=== PATIENT | male | born 1945 | race Caucasian/White ===

== ENCOUNTER 2016-05-21 11:44 | Inpatient (IN) | payer OTHER ==
[2016-05-18 14:04] LABS: HEMATOCRIT 38.8 % (40.0-51.0); HEMOGLOBIN 13.8 g/dL (13.6-17.8)
[2016-05-18 14:13] LABS: BUN (BLOOD UREA NITROGEN) 14 MG/DL (6-23); CALCIUM, SERUM 8.6 MG/DL (8.5-10.4); CHLORIDE, SERUM 103 MMOL/L (96-112); CO2 (CARBON DIOXIDE) 30 MMOL/L (24-34); CREATININE 0.89 MG/DL (0.70-1.30); GFR AFRICAN AMERICAN 101 ML/MIN (>=60); GFR NON AFRICAN AMERICAN 87 ML/MIN (>=60); GLUCOSE, SERUM 110 MG/DL (60-99); POTASSIUM, SERUM 4.3 MMOL/L (3.5-5.3); SODIUM, SERUM 141 MMOL/L (135-148)
[2016-05-18 16:43] LABS: ASCORBIC ACID (UR NOT ORDER) 40 (NEG); BILIRUBIN, URINE NEGATIVE (NEG); KETONE, URINE NEGATIVE (NEG); LEUKOCYTE ESTERASE(NOT OR SMALL (NEG); WBC (NOT ORDERED) (RFLEX) 1 (0-5)
--- NOTE | ~2016-05-21 | OP ---
Record Of Operation [facility] [address] [place]. [address] NAME: IZA IVY : 47 STATUS : DIS IN PAT#: [id number] AGE: 70 ADM/REG DATE : 05/21/16 MR#: [id number] REPORT SERV DATE: 05/22/16 DICTATED BY: SOHAIL BURR DATE: 05/22/16 REPORT STATUS : Draft TRANSCRIBED BY: MODL DATE: 05/22/16 DATE OF PROCEDURE: 05/21/2016 SURGEON: Sohail Burr MD. TITLE OF OPERATION: Robot-assisted laparoscopic radical nerve-sparing prostatectomy. PREOPERATIVE DIAGNOSIS: Prostate cancer. POSTOPERATIVE DIAGNOSIS: Prostate cancer. INDICATIONS: Mr. Ivy is a 70-year-old male with low-risk high volume prostate cancer. He has been given options including active surveillance, surgery, and radiation therapy. The risks and benefits of all approaches were discussed in detail. He has elected for radical prostatectomy. ANESTHESIA: General. COMPLICATIONS: None. IMPLANT: An 18-Armenian Andre catheter and a #10 round MELISSA drain. SPECIMEN: Prostate and seminal vesicles for pathologic analysis. NARRATIVE: The patient was brought to the operating room, identified by his wristband. General anesthesia was induced and Ancef was given for preoperative antibiotics. He was placed in dorsal lithotomy position, prepped and draped in sterile fashion. His abdomen was insufflated to a pressure of 15 mmHg using a Veress needle. A 16-Armenian Andre catheter was placed into his bladder. The balloon was inflated with 10 mL of sterile water. Once his abdomen was insufflated, an 8 mm port was placed in a supraumbilical position. His abdomen was inspected, there was no adhesions or abnormalities. A standard X-Y robotic port placement was performed with two 8 mm ports in the left side of the body and one 8 mm port on the right side of the body. A 12 mm port was placed in the right lower quadrant and a 5 mm port was placed in the right upper quadrant for certified ophthalmic assistant ports. The robot was docked to the ports. The operation was begun by incising the peritoneum over the seminal vesicles and vas deferens. These structures were dissected out bilaterally. The vas deferens were clipped and divided bilaterally. The vascular supply to the seminal vesicles were clipped and divided bilaterally. Once these structures were freed from their attachments, they were lifted anteriorly. Denonvilliers fascia was then sharply incised and reflected onto the rectum. Dissection was carried from the base of the prostate to the apex. The dissection was carried laterally to the junction of the neurovascular structures and the prostate. Next, the bladder was dropped off the anterior abdominal wall using electrocautery. This exposed the pubic bone and the prostate. The prostate was sharply defatted and all fibrofatty tissue surrounding the prostate was sent to Pathology as anterior fat pad. The endopelvic fascia were then sharply divided bilaterally. Levator fibers were flipped off the prostate bilaterally. The puboprostatic ligaments were divided bilaterally. The dorsal Record Of Operation [facility] [address] [facility] [place]. [address] NAME: IZA IVY : 47 STATUS : DIS IN PAT#: [id number] AGE: 70 ADM/REG DATE : 05/21/16 MR#: [id number] REPORT SERV DATE: 05/22/16 DICTATED BY: SOHAIL BURR DATE: 05/22/16 REPORT STATUS : Draft TRANSCRIBED BY: ISSAC DATE: 05/22/16 vein was precisely identified. Levator fibers were flipped off the dorsal vein to preserve these fibers. The dorsal vein was then stapled with a 30 mm endovascular stapler. The residual dorsal venous tissue was then sharply divided with scissors. A 3-0 V-Loc suture was placed through the dorsal vein several times into the pubic bone as a suspensory stitch. Next, a bladder neck preserving operation was performed. Fibrofatty tissue surrounding the bladder neck was divided with bipolar cautery and scissors. The bladder neck was then precisely entered. The bladder was then sharply resected off the base of the prostate. The posterior bladder neck was then incised and dissection was carried inferiorly to reveal the pre-dissected out seminal vesicles and vas deferens, which were then delivered into the operative field. The pedicle to the prostate was then clipped and divided bilaterally. An antegrade nerve-sparing operation was then performed bilaterally. Next, the urethra was sharply divided with care taken to leave adequate urethral length. The posterior striated sphincter was then divided. The prostate was then removed and placed into an EndoCatch bag. The wound was irrigated clear. Small bleeders were controlled with clips. The posterior striated sphincter was then reconstructed with a running 3-0 V-Loc suture in the manner described by Mario. A vesicourethral anastomosis was then performed in a running fashion with two interlocked 3-0 V-Loc sutures. An 18-Armenian Andre catheter was placed. The bladder was irrigated and the anastomosis was water tight. The balloon was inflated with 15 mL of sterile water. The robot was undocked. The certified ophthalmic assistant port was closed with a 0 Vicryl suture using a Shayan-Tawanda device. A #10 round MELISSA drain was placed through the left most lateral robotic port under direct vision. All ports were then removed. The drain was sutured in place with a 2-0 Prolene suture. The supraumbilical incision was enlarged at the skin and fascia levels. The prostate and the EndoCatch bag were removed and sent to Pathology for analysis. The fascia was then closed with interrupted 0 Monocryl suture in a [id number] fashion. The skin was closed with a 4-0 Monocryl suture in subcuticular fashion. A Dermabond dressing was placed. A TAP block was placed preoperatively. The patient was then awoken from anesthesia and transferred to the recovery room in stable condition. There were no complications. JKM/MODL Sohail Burr MD / [id number] CC: Sohail Burr MD
[~2016-05-21 11:44] MED LIST: COREG3 PO; GLUCPH PO; LANTUSCART SQ; LIPITOR40 PO; MSCONTIN PO; NOVOPEN SC; PRIN5 PO; TRAZ100 PO; ZANTAC150 MG PO; ZOL100 PO
[2016-05-21 17:12] LABS: BASOPHILS 0.4 %; BASOPHILS ABSOLUTE 0.04 10/3/uL (0.0-0.16); EOSINOPHILS 2.7 %; EOSINOPHILS ABSOLUTE 0.25 10/3/uL (0.0-0.53); HEMATOCRIT 33.6 % (40.0-51.0); HEMOGLOBIN 11.7 g/dL (13.6-17.8); IMMATURE GRANULOCYTES 0.2 %; IMMATURE GRANULOCYTES ABSOLUTE 0.02 10/3/uL (0.0-0.11); LYMPHOCYTES 15.8 %; LYMPHOCYTES ABSOLUTE 1.45 10/3/uL (0.67-4.30); MANUAL DIFF NO %; MEAN CORPUS HGB CONC 34.8 g/dL (32.0-36.0); MEAN CORPUSCULAR HEMOGLOB 31.9 pg (26.0-34.0); MEAN CORPUSCULAR VOLUME 91.6 fL (80-100); MEAN PLATELET VOLUME 8.8 fL (9.2-13.0); MONOCYTES 2.5 %; MONOCYTES ABSOLUTE 0.23 10/3/uL (0.21-1.20); NEUTROPHILS 78.4 %; NEUTROPHILS ABSOLUTE 7.18 10/3/uL (2.02-8.40); PLATELET COUNT 189 10/3/uL (150-400); RBC DISTRIBUTION WIDTH 12.2 % (12.0-16.0); RED CELL COUNT 3.67 10/6/uL (4.7-6.1); WHITE BLOOD CELLS 9.2 10/3/uL (4.5-10.5)
[2016-05-21 17:23] LABS: BUN (BLOOD UREA NITROGEN) 16 MG/DL (6-23); CALCIUM, SERUM 7.8 MG/DL (8.5-10.4); CHLORIDE, SERUM 107 MMOL/L (96-112); CO2 (CARBON DIOXIDE) 29 MMOL/L (24-34); CREATININE 0.88 MG/DL (0.70-1.30); GFR AFRICAN AMERICAN 102 ML/MIN (>=60); GFR NON AFRICAN AMERICAN 88 ML/MIN (>=60); POTASSIUM, SERUM 4.2 MMOL/L (3.5-5.3); SODIUM, SERUM 142 MMOL/L (135-148)
[2016-05-21 17:28] LABS: GLUCOSE, SERUM 135 MG/DL (60-99)
[2016-05-22 06:07] LABS: BASOPHILS 0.1 %; BASOPHILS ABSOLUTE 0.01 10/3/uL (0.0-0.16); EOSINOPHILS 0 %; HEMATOCRIT 35.7 % (40.0-51.0); HEMOGLOBIN 12.2 g/dL (13.6-17.8); IMMATURE GRANULOCYTES 0.3 %; IMMATURE GRANULOCYTES ABSOLUTE 0.03 10/3/uL (0.0-0.11); LYMPHOCYTES 13.6 %; LYMPHOCYTES ABSOLUTE 1.28 10/3/uL (0.67-4.30); MEAN CORPUS HGB CONC 34.2 g/dL (32.0-36.0); MEAN CORPUSCULAR HEMOGLOB 32.1 pg (26.0-34.0); MEAN CORPUSCULAR VOLUME 93.9 fL (80-100); MEAN PLATELET VOLUME 9.2 fL (9.2-13.0); MONOCYTES 4.6 %; MONOCYTES ABSOLUTE 0.43 10/3/uL (0.21-1.20); NEUTROPHILS 81.4 %; NEUTROPHILS ABSOLUTE 7.69 10/3/uL (2.02-8.40); PLATELET COUNT 180 10/3/uL (150-400); RBC DISTRIBUTION WIDTH 12.1 % (12.0-16.0); WHITE BLOOD CELLS 9.4 10/3/uL (4.5-10.5)
[2016-05-22 06:08] LABS: MANUAL DIFF NO %
[2016-05-22 06:15] LABS: CHLORIDE, SERUM 102 MMOL/L (96-112); CO2 (CARBON DIOXIDE) 25 MMOL/L (24-34); CREATININE 1.24 MG/DL (0.70-1.30); GFR AFRICAN AMERICAN 68 ML/MIN (>=60); GFR NON AFRICAN AMERICAN 59 ML/MIN (>=60); SODIUM, SERUM 138 MMOL/L (135-148)
[2016-05-22 06:17] LABS: BUN (BLOOD UREA NITROGEN) 27 MG/DL (6-23); GLUCOSE, SERUM 230 MG/DL (60-99)
[2016-05-22] MEDS ORDERED: DSS PO (12:02)
[2016-05-22] MEDS ORDERED: CIP5 PO (12:02)
[2016-05-22] MEDS ORDERED: PCET PO (12:03)
== END 2016-05-22 13:21 | disposition home or self-care (01) | DRG 708 ==
LOC: SDC/OF 11:44 → PACU 16:53 → 5SO 18:54
PROVIDERS: Urology
PROC: 0VT34ZZ Resection of Bilateral Seminal Vesicles, Percutaneous Endoscopic Approach (ICD-10-PCS; 2016-05-21)
PROC: 8E0W4CZ Robotic Assisted Procedure of Trunk Region, Percutaneous Endoscopic Approach (ICD-10-PCS; 2016-05-21)
PROC: 0VTQ4ZZ Resection of Bilateral Vas Deferens, Percutaneous Endoscopic Approach (ICD-10-PCS; 2016-05-21)
PROC: 0VT04ZZ Resection of Prostate, Percutaneous Endoscopic Approach (ICD-10-PCS; principal; 2016-05-21 16:00)
DX: C61 Malignant neoplasm of prostate (principal); I10 Essential (primary) hypertension; E11.9 Type 2 diabetes mellitus without complications; I25.10 Atherosclerotic heart disease of native coronary artery without angina pectoris; F41.9 Anxiety disorder, unspecified; Z95.0 Presence of cardiac pacemaker; Z95.1 Presence of aortocoronary bypass graft
CPT/HCPCS: 36415; 80048; 81001; 82962; 85014; 85018; 85025; 86850; 86900; 86901; 87086; 88304; 88309; 93005; A9270-GY; J0690; J1885; J2250; J2370; J2405; J2710; J2795; J3010